=== PATIENT | female | born 2000 | race African-American/Black ===

== ENCOUNTER → 2024-09-21 11:43 | Outpatient (CLI) | payer OTHER, SELFPAY ==
--- NOTE | 2024-09-21 11:44 | DI.US.S_ITS ---
PROCEDURE: US OB <= 14 WEEKS FETUS INDICATIONS: dating and viability OUTSIDE/PRIOR DATING DATA: Last menstrual period (LMP): July 20, 2024. LMP-based estimated date of delivery (CAROLYN): April 27, 2023. First dating scan (date and location): September 21, 2024. Estimated date of delivery (CAROLYN) from first dating scan: May 01, 2025. TECHNIQUE: Real-time scanning was performed of the fetus and maternal pelvic organs, with image documentation. Endovaginal scanning was also performed to better visualize the fetus and maternal ovaries. COMPARISON: None. FINDINGS: Embryo: Single living intrauterine gestation with estimated sonographic gestational age of approximately 8 weeks and 2 days based off crown-rump length measurement of 1.8 cm. There is a 2.0 x 1.6 x 1.7 cm perigestational hemorrhage near the internal os. Normal yolk sac. Heart rate: 168 beats per minute. Maternal organs: Ovaries appear unremarkable. There is a complicated cyst on the left and a corpus luteal cyst on the right. IMPRESSION: Single living intrauterine gestation with estimated sonographic gestational age of approximately 8 weeks and 2 days by crown-rump length measurement. Estimated date of delivery is approximately May 01, 2025. Estimated dated delivery by last menstrual period is approximately April 26, 2025. We strive to produce accurate, complete, and clear reports of imaging services. To assist us in improving patient care, this report was composed using standard report templates and voice recognition software. Therefore, it may contain abnormal punctuation, insertions and/or omissions. Occasional wrong-word or sound-alike substitutions may occur. Though we review the report and make efforts to correct it, we do recommend that the report be read carefully in proper context to recognize any text inaccuracies. Dictated by: Ian Loera M.D. on 09/21/2024 at 18:07 Approved by: Ian Loera M.D. on 09/21/2024 at 18:11
[2024-09-21 13:40] LABS: Hemoglobin A1C% w Est Avg Glu 4.8 % (4.0-6.0)
[2024-09-21 14:10] LABS: Free T4, Direct Thyroxine 0.92 ng/dL (0.78-2.19)
[2024-09-21 14:15] LABS: Appearance Urine UA CLEAR; Bilirubin Urine UA NEGATIVE (NEGATIVE); Color Urine UA YELLOW; Glucose Urine UA NEGATIVE (Negative); Ketones Urine UA NEGATIVE (NEGATIVE); Leukocyte Esterase Urine UA NEGATIVE (NEGATIVE); Nitrite Urine UA NEGATIVE (Negative); Occult Blood Urine UA NEGATIVE (Negative); Protein Urine UA NEGATIVE (Negative); Specific Gravity Urine UA 1.020 (1.000-1.035); Urobilinogen Urine UA 0.2 E.U./dL (0.2)
[2024-09-21 14:16] LABS: pH Urine UA 5.5 (4.5-8.0)
[2024-09-21 14:24] LABS: Thyroid Stimulating Hormone 2.08 uIU/mL (0.47-4.68)
[2024-09-21 15:39] LABS: Urine N gonorrhoeae NOT DETECTED
[2024-09-21 16:39] LABS: Urine Chlamydia NOT DETECTED
[2024-09-22 11:23] LABS: Rubeola Measles IgG < 13.5 AU/mL (Immune >16.4)
[2024-09-22 16:47] LABS: Hepatitis B Surface Antigen NEGATIVE s/c (NEGATIVE)
[2024-09-22 17:11] LABS: HIV 1 & 2 Ab/Ag 4th Gen Combo NEGATIVE (NEGATIVE); Hep C Virus Ab w/Reflex Quant NEGATIVE s/c (NEGATIVE)
== END ==
PROVIDERS: Referring Provider Family Medicine; Visit Provider Family Medicine
DX: Z34.01 Encounter for supervision of normal first pregnancy, first trimester (principal); N83.11 Corpus luteum cyst of right ovary; N83.292 Other ovarian cyst, left side; Z3A.08 8 weeks gestation of pregnancy
CPT/HCPCS: 36415; 76801; 76817; 81003; 83036; 84439; 84443; 86592; 86735; 86762; 86765; 86787; 86803; 86850; 86900; 86901; 87086; 87340; 87389; 87491; 87591

== ENCOUNTER → 2024-10-26 13:03 | Outpatient (CLI) | payer OTHER, SELFPAY ==
[2024-10-26 14:09] LABS: Natera Collection Specimen Collected
== END ==
PROVIDERS: Referring Provider Family Medicine; Visit Provider Family Medicine
DX: Z34.02 Encounter for supervision of normal first pregnancy, second trimester (principal)
CPT/HCPCS: 36415

== ENCOUNTER → 2024-11-11 15:18 | Outpatient (CLI) | payer OTHER, SELFPAY ==
[2024-11-11 16:28] LABS: Add Manual Diff / Slide Review NO; Hematocrit 39.7 % (36-46); Hemoglobin 13.6 g/dL (12.0-16.0); Lymphocytes Absolute Auto 1200 /uL (1100-4500); Mean Corpuscular HGB Conc 34.3 % (30-36); Mean Corpuscular Hemoglobin 27.9 PG (26-34); Mean Corpuscular Volume 81.4 fL (80-100); Platelet Count 121 X10^3/uL (150-400)
[2024-11-11 17:18] LABS: Alanine Aminotransferase 58 IU/L (<35); Albumin 4.0 g/dL (3.5-5.0); Albumin Globulin Ratio 1.3 (1.0-2.8); Alkaline Phosphatase 51 U/L (38-126); Blood Urea Nitrogen 10 mg/dL (7-17); Calcium 9.2 mg/dL (8.4-10.2); Carbon Dioxide 23 mmol/L (22-32); Chloride 104 mmol/L (98-107); Estimated Glomerular Filt Rate > 60 mL/min (>60); Globulin 3.2 g/dL (1.7-4.1); Glucose 78 mg/dL (70-99); HEMOLYSIS < 15 (0-50); Potassium 4.5 mmol/L (3.4-5.1); Sodium 135 mmol/L (137-145); Total Protein 7.2 g/dL (6.3-8.2)
[2024-11-11 17:44] LABS: Protein (Total) Urine Random 6 mg/dL (0-12); Protein Creatinine Ratio Urine 0.15 GRAM/24H
== END ==
PROVIDERS: Referring Provider Family Medicine; Visit Provider Family Medicine
DX: R51.9 Headache, unspecified (principal); R03.0 Elevated blood-pressure reading, without diagnosis of hypertension
CPT/HCPCS: 36415; 80053; 82570; 84156; 85025

== ENCOUNTER → 2024-11-20 13:02 | Outpatient (CLI) | payer OTHER, SELFPAY ==
[2024-11-20 13:26] LABS: Add Manual Diff / Slide Review NO; Hematocrit 39.3 % (36-46); Hemoglobin 13.2 g/dL (12.0-16.0); Lymphocytes Absolute Auto 1200 /uL (1100-4500); Mean Corpuscular HGB Conc 33.7 % (30-36); Mean Corpuscular Hemoglobin 27.4 PG (26-34); Mean Corpuscular Volume 81.5 fL (80-100); Platelet Count 117 X10^3/uL (150-400)
[2024-11-20 13:42] LABS: Alanine Aminotransferase 55 IU/L (<35); Albumin 3.8 g/dL (3.5-5.0); Albumin Globulin Ratio 1.2 (1.0-2.8); Alkaline Phosphatase 49 U/L (38-126); Blood Urea Nitrogen 9 mg/dL (7-17); Calcium 8.8 mg/dL (8.4-10.2); Carbon Dioxide 21 mmol/L (22-32); Chloride 107 mmol/L (98-107); Estimated Glomerular Filt Rate > 60 mL/min (>60); Globulin 3.1 g/dL (1.7-4.1); Glucose 76 mg/dL (70-99); HEMOLYSIS < 15 (0-50); Potassium 4.2 mmol/L (3.4-5.1); Sodium 137 mmol/L (137-145); Total Protein 6.9 g/dL (6.3-8.2)
== END ==
PROVIDERS: Referring Provider Family Medicine; Visit Provider Family Medicine
DX: R03.0 Elevated blood-pressure reading, without diagnosis of hypertension (principal); R51.9 Headache, unspecified; R89.9 Unspecified abnormal finding in specimens from other organs, systems and tissues; Z79.899 Other long term (current) drug therapy
CPT/HCPCS: 36415; 80053; 85025

== ENCOUNTER → 2024-12-07 14:49 | Outpatient (CLI) | payer OTHER, SELFPAY ==
--- NOTE | 2024-12-07 14:50 | DI.US.S_ITS ---
PROCEDURE: US OB >= 14 WEEKS FETUS INDICATIONS: anatomy US OUTSIDE/PRIOR DATING DATA: Last menstrual period (LMP): 07/20/2024 LMP-based estimated date of delivery (CAROLYN): 04/26/2025 First dating scan (date and location): 09/21/2024 Estimated date of delivery (CAROLYN) from first dating scan: 05/01/2025 The calculations are made using the clinical CAROLYN of 04/26/2025 TECHNIQUE: Real-time scanning was performed of the fetus, with image documentation and biometric measurements. Endovaginal scanning: Not performed COMPARISON: [facility], OB <= 14 WEEKS FETUS, 09/21/2024, 12:19. FINDINGS: General: A single living intrauterine gestation is present. Presentation: Vertex Placenta: Placental position is posterior, without previa. Placental cord insertion is located approximately 0.9 cm from the superior placental margin. Amniotic fluid index: 14.8 cm, normal range is 5-24 cm. Single deepest vertical pocket is 4.5 cm. heart rate: 135 beats per minute. Maternal cervical canal: 5.1 cm long. Normal lower limit is 2.5 cm. biometrics: Biparietal diameter: 4.3 cm, 19 weeks 0 days Head circumference: 15.6 cm, 18 weeks 4 days Abdominal circumference: 14.9 cm, 20 weeks 1 day Femur length: 3.2 cm, 19 weeks 6 days Clinically estimated gestational age: 20 weeks 0 days Composite gestational age from present scan: 19 weeks 3 days Estimated weight and percentile: 316 g, 36th percentile Anatomic survey: Neuro: Ventricles are non-dilated at less than 10 mm. Cisterna magna is normal at 3-11 mm. Cerebellum is normal in size and morphology. Nuchal skin fold: Normal at less than 6 mm between 14-21 weeks gestational age. Face: Nose and lips appear normal. Facial profile is not well seen. Spine: No evidence for spina bifida. Heart: heart and ventricular outflow tracts are not well evaluated due to positioning and maternal body habitus. Diaphragm: Diaphragm is intact. Stomach: Left-sided stomach is present. Kidneys: No hydronephrosis. Normal is less than 5 mm in 2nd trimester, less than 7 mm in 3rd trimester. Cord: 3-vessel cord has orthotopic insertion. Bladder: Normal in size. Extremities: All 4 extremities identified. IMPRESSION: 1. Single live intrauterine . Interval growth is within normal limits. 2. Marginal placental cord insertion. Recommend attention on follow-up. 3. Technically difficult exam and the facial profile, heart, and ventricular outflow tracts are not well evaluated. Recommend follow-up exam. 4. anatomic survey is otherwise within normal limits. Approved by: Rai Funes M.D. on 12/08/2024 at 9:14
== END ==
LOC: US 14:50
PROVIDERS: Referring Provider Family Medicine; Visit Provider Family Medicine
DX: O43.192 Other malformation of placenta, second trimester (principal); Z3A.20 20 weeks gestation of pregnancy
CPT/HCPCS: 76811

== ENCOUNTER → 2024-12-15 15:10 | Outpatient (CLI) | payer OTHER, SELFPAY ==
--- NOTE | 2024-12-15 15:11 | DI.US.S_ITS ---
PROCEDURE: US OB FOLLOW UP INDICATIONS: f/up poorly visualized heart and face on anatomy US OUTSIDE/PRIOR DATING DATA: Last menstrual period (LMP): July 20, 2024. LMP-based estimated date of delivery (CAROLYN): April 26, 2025. First dating scan (date and location): September 21, 2024. Estimated date of delivery (CAROLYN) from first dating scan: May 01, 2025. The calculations are made using the LMP CAROLYN of April 26, 2025. TECHNIQUE: Real-time scanning was performed of the fetus, with image documentation. Endovaginal scanning: Not performed COMPARISON: None. FINDINGS: A single living intrauterine gestation is present. Presentation: Vertex. Placenta: Placental position is posterior, without previa. Placental cord insertion measures approximately 2.5 cm from the margin. Amniotic fluid index: 10.9 cm, normal range is 5-24 cm. Single deepest vertical pocket is 3.7 cm. heart rate: 166 beats per minute. Maternal cervical canal: 5.0 cm long. Normal lower limit is 2.5 cm. Clinically estimated gestational age: 21 weeks and 1 day Other: Visualized heart, ventricular outflow tracts, face, facial profile, nose and lips appear unremarkable. IMPRESSION: Single living intrauterine gestation with estimated gestational age of approximately 21 weeks and 1 day. Re-evaluation of the heart, ventricular outflow tracts, facial structures/facial profile, and nose and lips appear within normal limits. Dictated by: Ian Loera M.D. on 12/16/2024 at 10:27 Approved by: Ian Loera M.D. on 12/16/2024 at 10:31
== END ==
LOC: US 15:11
PROVIDERS: Referring Provider Family Medicine; Visit Provider Family Medicine
DX: Z34.02 Encounter for supervision of normal first pregnancy, second trimester (principal); Z3A.21 21 weeks gestation of pregnancy
CPT/HCPCS: 76816

== ENCOUNTER → 2025-01-06 11:23 | Outpatient (CLI) | payer OTHER, SELFPAY ==
[2025-01-06 13:03] LABS: Hematocrit 41.8 % (36-46); Hemoglobin 14.2 g/dL (12.0-16.0); Mean Corpuscular HGB Conc 33.9 % (30-36); Mean Corpuscular Hemoglobin 27.4 PG (26-34); Mean Corpuscular Volume 80.8 fL (80-100); Platelet Count 134 X10^3/uL (150-400)
[2025-01-06 13:16] LABS: GTT (PREG) 1 Hour PP 50gm Dose 87 mg/dL (76-139)
== END ==
PROVIDERS: Referring Provider Family Medicine; Visit Provider Family Medicine
DX: Z34.00 Encounter for supervision of normal first pregnancy, unspecified trimester (principal)
CPT/HCPCS: 36415; 82950; 85027